=== PATIENT | female | born 1945 | race Caucasian/White ===

== ENCOUNTER 2017-07-26 07:25 | Outpatient (CLI) | payer MEDICARE ==
--- NOTE | 2017-07-26 08:36 | ULT ---
ULTRASOUND GALLBLADDER RIGHT UPPER QUADRANT: Date: 07/26/17 HISTORY: Gallbladder polyp. COMPARISON: None. FINDINGS: Visualized portions of the pancreas are unremarkable. Increased hepatic echotexture. Portal vein is p atent with antegrade flow. Liver measures 13.6 cm in length. Common bile duct is normal. Right kidney measures 10.5 x 3.7 x 4.7 cm, without mass, hydronephrosis, or abnormal calcifications. No gallbladd er polyp is seen on this examination. IMPRESSION: 1. No gallbladder polyp seen on today's exam. 2. Diffuse increased hepatic echotexture suggesting steatosis. POS: [facility]
== END 2017-07-26 07:26 | disposition home or self-care (01) ==
LOC: ULT 07:25
PROVIDERS: ATTEND Internal Medicine Gastroenterology
DX: K82.4 Cholesterolosis of gallbladder (principal); R93.2 Abnormal findings on diagnostic imaging of liver and biliary tract
CPT/HCPCS: 76705

== ENCOUNTER 2017-11-08 14:57 | Outpatient (CLI) | payer MEDICARE | END 2017-11-08 14:58 | disposition home or self-care (01) | LOC: BICRAD 14:57 | PROVIDERS: ATTEND Family Medicine | DX: M25.561 Pain in right knee (principal) ==

== ENCOUNTER 2018-01-10 14:45 | Outpatient (CLI) | payer MEDICARE | END 2018-01-10 14:46 | disposition home or self-care (01) | LOC: BICMAMMO 14:45 | PROVIDERS: ATTEND Family Medicine | DX: Z13.820 Encounter for screening for osteoporosis (principal); M81.0 Age-related osteoporosis without current pathological fracture | CPT/HCPCS: 77063; 77067; 77080 ==

== ENCOUNTER 2019-01-24 14:56 | Outpatient (CLI) | payer MEDICARE ==
--- NOTE | 2019-01-24 15:45 | BD ---
EXAM: DEXA bone density examination HISTORY: 73-year-old postmenopausal female for screening COMPARISON: None FINDINGS: L1--bone mineral density 0.732 g/sq cm; T score -2.3 L2--bone mineral density 0.716 g/sq cm; T score -2.8 L3--bone mineral density 0.705 g/sq cm; T score -3.4 L4--bone mineral density 0.702 g/sq cm; T score -3.3 Total L1-L4--bone mineral density 0.714 g/sq cm; T score -3.0 Left femoral neck--bone mineral density0.612; T score -2.1 Total proximal left femur--bone mineral density 0.896; T score -0.4 IMPRESSION: Osteoporosis.
--- NOTE | 2019-01-24 16:12 | MMO ---
Bilateral MAMMO Bilat Screen [facility]. CLINICAL HISTORY: Patient is 73 years old and is seen for screening. The patient has no family history of breast cancer. The patient has no personal history of cancer. VIEWS: The views performed were: bilateral craniocaudal with tomosynthesis and bilateral mediolateral oblique with tomosynthesis. FILMS COMPARED: The present examination has been compared to prior imaging studies performed at [facility] on 02/15/2014 and 07/07/2016, and at [facility] on 01/10/2018. This study has been interpreted with the assistance of computer-aided detection. MAMMOGRAM FINDINGS: There are scattered fibroglandular densities. There are stable benign appearing calcifications seen in both breasts. There are no suspicious masses, suspicious calcifications, or new areas of architectural distortion. IMPRESSION: THERE IS NO MAMMOGRAPHIC EVIDENCE OF MALIGNANCY. A ROUTINE FOLLOW-UP MAMMOGRAM IN 1 YEAR IS RECOMMENDED. THE RESULTS OF THIS EXAM WERE SENT TO THE PATIENT. ACR BI-RADS Category 2 - Benign finding MAMMOGRAPHY NOTE: 1. A negative mammogram report should not delay a biopsy if a dominant of clinically suspicious mass is present. 2. Approximately 10% to 15% of breast cancers are not detected by mammography. 3. Adenosis and dense breasts may obscure an underlying neoplasm. Reported by: WAGNER MARTELL MD Electonically Signed: [id number]
== END 2019-01-24 14:57 | disposition home or self-care (01) ==
LOC: BICMAMMO 14:56
PROVIDERS: ATTEND Family Medicine
DX: Z12.31 Encounter for screening mammogram for malignant neoplasm of breast (principal); M81.0 Age-related osteoporosis without current pathological fracture; M85.852 Other specified disorders of bone density and structure, left thigh
CPT/HCPCS: 77063; 77067; 77080

== ENCOUNTER 2019-08-31 13:41 | Outpatient (CLI) | payer MEDICARE ==
--- NOTE | 2019-08-31 14:35 | RAD ---
EXAM: XR Lumbar Spine 2 Or 3 View PROVIDED CLINICAL HISTORY: Dorsalgia. COMPARISON: None FINDINGS: 5 nonrib-bearing lumbar-type vertebral bodies are present. The vertebral body heights and interverteb ral disc spaces are within normal limits. No fracture or subluxation is seen involving the lumbar spine. A few minimal scattered osteophytes are identified. IMPRESSION: Minimal degenerative changes without fracture or subluxation involving the lumbar spine.
--- NOTE | 2019-08-31 14:36 | RAD ---
Exam: 2 view cervical spine HISTORY: Right upper back pain, x1 year FINDINGS: Cervical spine vertebral body heights are maintained. No fractures or malalignment. Mild-to -moderate generative changes at C5-C6. No spondylolisthesis or spondylolysis. Predental space is preserved. In the AP projection, mild facet arthropathy IMPRESSION: Mild to moderate change at C5-C6
--- NOTE | 2019-08-31 14:40 | RAD ---
EXAM: XR Thoracic Spine 2 View PROVIDED CLINICAL HISTORY: Right upper back pain for one year. No known injury. COMPARISON: None FINDINGS: Mild scattered osteophytes are seen in the thoracic spine. A mild wedge-shaped compression fracture t he T4 vertebral body is visualized. Remaining vertebral body heights as well as intervertebral disc spaces are within normal limits. No subluxation is seen. Vascular calcic lesions are seen in the thor acic aorta. Incomplete imaging of linear densities in the lateral right lung base is present which could be related to volume loss or scarring; however, this is incompletely imaged or evaluated. IMPRESSION: 1. Indeterminate age mild compression fracture T4 vertebral body with approximately 10-15% loss of he ight along the superior endplate anteriorly. 2. Mild degenerative changes in thoracic spine. 3. Incomplete visualization of linear densities right lung base which may be related to scarring or a telectasis or possibly superimposition of structures. Follow-up chest x-ray is suggested to ensure that no consolidation or lesion is seen in this location.
== END 2019-08-31 13:42 | disposition home or self-care (01) ==
LOC: BICRAD 13:41
PROVIDERS: ATTEND Family Medicine
DX: M54.9 Dorsalgia, unspecified (principal); M47.814 Spondylosis without myelopathy or radiculopathy, thoracic region; R91.8 Other nonspecific abnormal finding of lung field; M47.812 Spondylosis without myelopathy or radiculopathy, cervical region; M47.816 Spondylosis without myelopathy or radiculopathy, lumbar region
CPT/HCPCS: 72040; 72070; 72100

== ENCOUNTER 2019-09-29 10:23 | Outpatient (CLI) | payer MEDICARE ==
--- NOTE | 2019-09-29 14:30 | MRI ---
MRI OF THE THORACIC SPINE WITHOUT CONTRAST: 09/29/19 COMPARISON: None. HISTORY: Thoracic spine radiculopathy. TECHNIQUE: Multiplanar and multisequence MR imaging of the thoracic spine is provided without contrast. There is an anterior wedge compression fracture involving the T4 vertebral body with approximately 50 % loss of vertebral body height anteriorly. This fracture was present on radiographs performed 0 and the STIR imaging demonstrates no associated vertebral body edema. This is consistent with a chr onic fracture. The sagittal STIR imaging demonstrates no focal area of osseous marrow edema on this e xam. The axial imaging is limited by motion artifact which slightly limits detailed assessment for central canal and neural foraminal stenosis. T1-2: No significant central canal or neural foraminal stenosis. T2-3: No significant central canal or neural foraminal stenosis. T3-4: Mild bilateral facet hypertrophy with no significant central canal or neural foraminal stenosis . T4-5: Posterior osteophyte present. Bilateral facet hypertrophy noted, right greater than left. There is probable partial osseous fusion in the region of the facet joint on the left. Findings result in significant bilateral neural foraminal stenosis at L4-5, left greater than right. There is at least m ild/moderate central canal stenosis at the T4-5 level. The degree of motion artifact limits detailed assessment. T5-6: There is disc space narrowing and disc desiccation with mild facet hypertrophy bilaterally. Mil d bilateral neural foraminal stenosis. Probable mild central canal stenosis. T6-7: Bilateral facet hypertrophy. Minimal disc bulge with no significant central canal or neural for aminal stenosis. T7-8: Minimal disc bulge and mild bilateral facet hypertrophy with no significant central canal or ne ural foraminal stenosis. T8-9: Disc desiccation and mild bilateral facet hypertrophy with no significant central canal or neur al foraminal stenosis. T9-10: No significant central canal or neural foraminal stenosis. T10-11: No central canal or neural foraminal stenosis. T11-12: Unremarkable. T12-L1: Unremarkable. Evaluation of the thoracic cord is limited secondary to motion. There is a linear area of increased s ignal intensity within the thoracic cord posterior to T5 vertebral body/T4-5 disc space. There is pro bable volume loss involving the cord in this region as well. Detailed assessment is limited secondary to motion. This is felt to most likely signify myelomalacia associated with prior cord injury at the time of the T4 fracture. There is an ill-defined T2 hyperintense lesion in the upper pole of the left kidney measuring approxi mately 1.2 cm. IMPRESSION: 1. Technically limited study secondary to motion artifact demonstrating a remote T4 fracture wit h approximately 50% loss of vertebral body height anteriorly. There is central canal and neural jorge inal stenosis at this level. There is abnormal signal intensity within the thoracic cord at the T4-5 /T5 level with probable volume loss suggesting associated myelomalacia. Recommend thoracic spine CT examination for better assessment. 2. Nonspecific ill-defined T2 hyperintense lesion in the upper pole of the left kidney measuring up to 1.2 cm. Recommend further assessment with renal ultrasound. Code T POS: [facility]
== END 2019-09-29 10:24 | disposition home or self-care (01) ==
LOC: BICMRI 10:23
PROVIDERS: ATTEND Family Medicine
DX: M54.14 Radiculopathy, thoracic region (principal); M48.04 Spinal stenosis, thoracic region; N28.9 Disorder of kidney and ureter, unspecified
CPT/HCPCS: 72146

== ENCOUNTER 2020-08-13 15:34 | Outpatient (CLI) | payer MEDICARE | END 2020-08-13 15:35 | disposition home or self-care (01) | LOC: BICMAMMO 15:34 | PROVIDERS: ATTEND Family Medicine | DX: Z12.31 Encounter for screening mammogram for malignant neoplasm of breast (principal) | CPT/HCPCS: 77063; 77067 ==

== ENCOUNTER 2021-07-18 13:22 | Outpatient (CLI) | payer MEDICARE | END 2021-07-18 13:23 | disposition home or self-care (01) | LOC: BICMRI 13:22 | PROVIDERS: ATTEND Family Medicine | DX: R41.3 Other amnesia (principal); R90.89 Other abnormal findings on diagnostic imaging of central nervous system | CPT/HCPCS: 70553; 82565 ==